=== PATIENT | female | born 1970 | race Caucasian/White ===

== ENCOUNTER 2018-05-14 12:13 | Emergency (ER) | payer MEDICAID ==
[~2018-05-14] VITALS: Ht 149.9 cm; Wt 77.3 kg
[2018-05-14 12:35] VITALS: BP 135/104
--- NOTE | 2018-05-14 12:38 | NUR ---
AFTER PROVIDING URINE SPECIMEN PT AMBULATES WITH BACK TO THE LOBBY
--- NOTE | 2018-05-14 12:40 | NUR ---
PATIENT PRESENTS TO ED WITH C/O HEADACHE AND NAUSEA . PT STATES HER SYMPTOMS STARTED TODAY AROUND 0700 . DENIES V/D; PATIENT DENIES ANY MEDICAL HX. SKIN IS PINK/WARM/DRY; AAOX4 WITH EVEN AND STEADY GAIT; LUNGS CLEAR BL; HR EVEN AND REGULAR; PT DENIES ANY FEVER, CP, SOB, OR COUGH AT THIS TIME; PATIENT STATES HEADACHE PAIN OF 9/10 AT THIS TIME; VSS; PATIENT POSITIONED FOR COMFORT; HOB ELEVATED; BEDRAILS UP X2; BED DOWN. ER MD MADE AWARE OF PT STATUS.
--- NOTE | 2018-05-14 13:03 | NUR ---
PT AMBULATES TO BED 10
[2018-05-14] MEDS ORDERED: MECLIZINE 25 MG TAB PO ONE (13:35)
--- NOTE | 2018-05-14 14:27 | NUR ---
PATIENT AWAKE IN BED. NO S/S OF DISTRESS. PATIENT DENIES NAUSEA AT THIS TIME
[2018-05-14 14:45] VITALS: BP 143/78
== END 2018-05-14 14:45 | disposition home or self-care (01) ==
LOC: MED 12:13
DX: R42 Dizziness and giddiness (principal); R51 Headache
CPT/HCPCS: 70450; 81002; 81025; 93005; 99284; J8597

== ENCOUNTER 2018-12-19 09:00 | Day surgery (SDC) | payer BC ==
[2018-12-15 10:35] LABS: BASOPHILS # (AUTO) 0.1 K/uL (0.00-0.22); BASOPHILS % (AUTO) 0.7 % (0.0-2.0); EOSINOPHILS # (AUTO) 0.1 K/uL (0-0.4); EOSINOPHILS % (AUTO) 0.8 % (0.0-4.0); HEMOGLOBIN 13.9 g/dL (12.0-16.0); LYMPHOCYTES # (AUTO) 2.4 K/uL (2.5-16.5); LYMPHOCYTES % (AUTO) 23.4 % (20.5-51.1); MEAN CORPUSCULAR HEMOGLOBIN 29 pg (27-31); MEAN CORPUSCULAR HGB CONC 34 g/dL (33-37); MEAN CORPUSCULAR VOLUME 85.1 fL (80-94); MONOCYTES # (AUTO) 0.8 K/uL (0.8-1.0); MONOCYTES % (AUTO) 7.6 % (1.7-9.3); NEUTROPHILS % (AUTO) 67.5 % (42.2-75.2); PLATELET COUNT (AUTO) 303 K/uL (140-450); RED BLOOD CELL COUNT(AUTO) 4.82 MIL/uL (4.20-5.40); RED CELL DISTRIBUTION WIDTH 13.8 % (11.6-13.7); WHITE BLOOD COUNT (AUTO) 10.4 K/uL (4.8-10.8)
[2018-12-15 12:22] LABS: ANION GAP 15.2 (8-16); CARBON DIOXIDE 23.6 mmol/L (21-32); CREATININE 0.6 mg/dL (0.6-1.3); POTASSIUM 3.8 mmol/L (3.5-5.1)
[2018-12-15 12:48] LABS: ALBUMIN 3.3 g/dL (3.4-5.0); TOTAL BILIRUBIN 0.4 mg/dL (0.0-1.0)
[~2018-12-19] VITALS: Ht 157.5 cm; Wt 75.3 kg
[2018-12-19] MEDS ORDERED: BUPIVACAINE-MPF 0.25% 30 ML VIAL INJ ONE (10:51)
[2018-12-19] MEDS ORDERED: KETOROLAC 30 MG/ML VIAL ONE (10:56)
[2018-12-19] MEDS ORDERED: DESFLURANE 240 ML BTL INH ONE (10:56)
[2018-12-19] MEDS ORDERED: ONDANSETRON 4 MG/2 ML VIAL ONE (10:56)
[2018-12-19] MEDS ORDERED: PROPOFOL 200 MG/20 ML VIAL IV ONE (10:56)
[2018-12-19] MEDS ORDERED: DEXAMETHASONE 4 MG/ML VIAL ONE (10:56)
[2018-12-19] MEDS ORDERED: fentaNYL 0.05 MG/ML VIAL ONE (10:58)
[2018-12-19] MEDS ORDERED: ONDANSETRON 4 MG/2 ML VIAL IVP PRN (12:10)
[2018-12-19] MEDS ORDERED: HYDROmorphone 1 MG/ML AMP IVP PRN ×2 (12:10→13:30)
[2018-12-19] MEDS: HYDROmorphone PFS 2 MG/ML SYR ONE ×2 (12:10→12:20)
[2018-12-19] MEDS ORDERED: ACETAMINOPHEN 325 MG TAB PO PRN (12:10)
[2018-12-19] MEDS ORDERED: MORPHINE SULFATE 2 MG/ML SYR IVP PRN (13:30)
[2018-12-19] MEDS ORDERED: MORPHINE SULFATE 4 MG/ML SYR IV PRN (13:30)
[2018-12-19] MEDS ORDERED: ONDANSETRON 4 MG/2 ML VIAL IV PRN (13:30)
== END 2018-12-19 13:45 | disposition home or self-care (01) ==
LOC: MDS 09:00 → MMU 09:00 → MDS 13:45
PROVIDERS: ATTEND Surgery
DX: D24.2 Benign neoplasm of left breast (principal); N60.12 Diffuse cystic mastopathy of left breast; E66.9 Obesity, unspecified; Z68.30 Body mass index [BMI] 30.0-30.9, adult; Z90.710 Acquired absence of both cervix and uterus; Z90.49 Acquired absence of other specified parts of digestive tract; Z98.890 Other specified postprocedural states
CPT/HCPCS: 19125; 36415; 71045; 76641; 80053; 85025; 88307; 93005; J0690; J1170; J1885; J2405; J2704; J3010; J3490; J7060; J7120; Q0092; J1100